=== PATIENT | female | born 1975 | race Hispanic/Latino ===

== ENCOUNTER 2019-01-13 18:40 | Emergency (ER) | payer BC ==
[2019-01-13 19:39] LABS: APPEARANCE,URINE Clear (CLEAR); BILIRUBIN,URINE Negative (NEGATIVE); COLOR,URINE Dark Yellow (YELLOW); GLUCOSE, URINE (UA) Negative (NEGATIVE); KETONES,URINE >=160 mg/dL (NEGATIVE); LEUKOCYTE ESTERASE ,URINE Trace (NEGATIVE); NITRATE,URINE Negative (NEGATIVE); OCCULT BLOOD,URINE Negative (NEGATIVE); PH,URINE 6.5 (5.0-8.0); PROTEIN,URINE Negative (NEGATIVE)
[2019-01-13] MEDS ORDERED: SODIUM CHLORIDE 0.9% 1000ML 1,000 ML IV ONE (19:39)
[2019-01-13 19:58] LABS: HCG,QUAL RESULT NEGATIVE (NEGATIVE)
[2019-01-13 20:09] LABS: BACTERIA,URINE Few /HPF (None Seen); MUCUS,URINE Moderate LPF (None Seen)
[2019-01-13 20:14] LABS: CREATININE 0.7 mg/dL (0.5-1.5)
[2019-01-13 20:21] LABS: POTASSIUM 2.8 mmol/L (3.5-5.1)
[2019-01-13] MEDS ORDERED: IOHEXOL-350 75 ML VIAL IV ONE (20:28)
[2019-01-13] MEDS ORDERED: POTASSIUM CHLORIDE 20 MEQ ERTAB PO ONE (21:01)
[2019-01-13] MEDS ORDERED: KETOROLAC TROMETHAMINE 30MG/ML ONE (22:00)
[2019-01-13] MEDS ORDERED: METRONIDAZOLE 500MG/100ML BAG 100 ML ONE (22:00)
[2019-01-13] MEDS ORDERED: ONDANSETRON HCL 4 MG/2 ML VIAL ONE (22:11)
[2019-01-13] MEDS ORDERED: LEVOFLOXACIN 750 MG/D5W 150 ML 150 ML ONE (23:08)
== END 2019-01-14 00:13 | disposition home or self-care (01) ==
LOC: EDH 18:40
DX: K57.90 Diverticulosis of intestine, part unspecified, without perforation or abscess without bleeding (principal); R19.7 Diarrhea, unspecified; Z98.51 Tubal ligation status
CPT/HCPCS: 36415; 74177; 80048; 81001; 81025; 96361; 96365; 96367; 96375; 99285; J1885; J1956; J2405; J3490; J7030; Q9967

== ENCOUNTER 2020-02-24 16:19 | Emergency (ER) | payer OTHER, BC ==
[2020-02-24] MEDS ORDERED: SODIUM CHLORIDE 0.9% 1000ML 1,000 ML IV ONE (17:47)
[2020-02-24] MEDS ORDERED: ONDANSETRON HCL 4 MG/2 ML VIAL ONE ×2 (17:47→22:37)
[2020-02-24] MEDS ORDERED: ZOSYN 3.375GM+NS 50ML 50 ML IV ONE (17:48)
[2020-02-24] MEDS ORDERED: MORPHINE SULFATE 4 MG/1ML SYG ONE (17:48)
[2020-02-24 18:03] LABS: APPEARANCE,URINE Clear (CLEAR); BILIRUBIN,URINE Negative (NEGATIVE); COLOR,URINE Yellow (YELLOW); GLUCOSE, URINE (UA) Negative (NEGATIVE); KETONES,URINE 40 mg/dL (NEGATIVE); LEUKOCYTE ESTERASE ,URINE Negative (NEGATIVE); NITRATE,URINE Negative (NEGATIVE); OCCULT BLOOD,URINE Negative (NEGATIVE); PH,URINE 7.5 (5.0-8.0); PROTEIN,URINE Negative (NEGATIVE); UROBILINOGEN,URINE 0.2 mg/dL (0.2-1.0)
[2020-02-24 18:08] LABS: HCG,QUAL RESULT NEGATIVE (NEGATIVE)
[2020-02-24 18:10] LABS: BASOPHILS % (AUTO) 0.1 % (0.0-5.0); EOSINOPHILS % (AUTO) 0.1 % (0.0-8.0); LYMPHOCYTES % (AUTO) 6.5 % (21.0-51.0); MEAN CORPUSCULAR HEMOGLOBIN 25.1 pg (27.0-33.0); MEAN CORPUSCULAR HGB CONC 31.1 g/dL (32.0-36.0); MEAN CORPUSCULAR VOLUME 80.6 fL (79-99); MONOCYTES % (AUTO) 7.3 % (3.0-13.0); NEUTROPHILS % (AUTO) 85.7 % (40.0-77.0); PLATELET COUNT (AUTO) 239 K/uL (130-400); RED BLOOD CELL COUNT(AUTO) 4.34 MIL/uL (4.00-5.50); RED CELL DISTRIBUTION WIDTH 13.5 % (11.0-15.5)
[2020-02-24 18:13] LABS: CREATININE 0.8 mg/dL (0.5-1.5); POTASSIUM 3.7 mmol/L (3.5-5.1)
[2020-02-24 18:18] LABS: ALBUMIN 3.6 g/dL (3.5-5.0); BILIRUBIN,TOTAL 0.4 mg/dL (0.2-1.0); TOTAL PROTEIN, SERUM 8.1 g/dL (6.0-8.3)
[2020-02-24] MEDS ORDERED: IOHEXOL-350 75 ML VIAL IV ONE (18:39)
[2020-02-24] MEDS ORDERED: KETOROLAC TROMETHAMINE 30MG/ML ONE (20:00)
[2020-02-24] MEDS ORDERED: METRONIDAZOLE 500MG/100ML BAG 100 ML ONE (20:01)
[2020-02-24] MEDS ORDERED: LEVOFLOXACIN 750 MG/D5W 150 ML 150 ML ONE (21:05)
== END 2020-02-24 22:52 | disposition home or self-care (01) ==
LOC: EDH 16:19
DX: K57.32 Diverticulitis of large intestine without perforation or abscess without bleeding (principal)
CPT/HCPCS: 36415; 74177; 80053; 81003; 81025; 83605; 83690; 85025; 87040 ×2; 96365; 96366; 96367; 96375; 96376; 99285; J1885; J1956; J2270; J2405 ×2; J2543; J3490; J7030; Q9967